=== PATIENT | male | born 1995 | race Caucasian/White ===

== ENCOUNTER 2018-04-12 04:16 | Emergency (ER) | payer OTHER ==
--- NOTE | 2018-04-12 04:41 | EDM.PDOC ---
ED HPI GENERAL MEDICAL PROBLEM - General Chief Complaint: General Stated Complaint: R #3 digit injury Time Seen by Provider: 04/12/18 04:35 Source of Information: Reports: Patient. Denies: Old Records (No [facility] records available) History Limitations: Reports: No Limitations - History of Present Illness INITIAL COMMENTS - FREE TEXT/NARRATIVE: The patient was brought to the emergency room via private automobile by his vehicle safety inspector for evaluation of a Workmen's Compensation injury, which occurred at about 02:45 AM this morning. He accidentally caught his third finger of his right hand in a conveyor chain with no history of foreign body, paresthesias, neurological deficits, or other complaints or injuries. He is right-handed and has not injured this digit in the past. No recent history of abdominal pain, heartburn, nausea, diarrhea, melena, gross hematochezia, or any food intolerance, including fatty foods, etc.. The patient also denies any recent fever, cough, wheezing, dyspnea, etc.. The patient was wearing safety glasses at time of the above accident. Onset: Today, Sudden Onset Date: 04/12/18 Onset Time: 02:45 Duration: Constant Location: Reports: Upper Extremity, Right. Denies: Head, Face, Neck, Chest, Abdomen, Back, Pelvis, Upper Extremity, Left, Radiates to Quality: Reports: Sharp, Throbbing Severity: Moderate Improves with: Reports: Rest Worsens with: Reports: Movement Context: Reports: Trauma (As above) Associated Symptoms: Denies: Confusion, Chest Pain, Cough, Diaphoresis, Fever/ Chills, Headaches, Loss of Appetite, Malaise, Nausea/Vomiting, Seizure, Shortness of Breath, Syncope, Weakness Treatments STEVEDORE HOLD: Reports: Dressing(s) Right Finger-Middle Pain Score (Numeric/FACES): 8 - Related Data Allergies Allergy/AdvReac Type Severity Reaction Status Date / Time No Known Allergies Allergy Verified 04/12/18 04:25 Home Meds: Home Meds Amoxicillin/Potassium Clav [Augmentin 875-125 Tablet] 1 each PO BIDMEALS #20 tablet 04/12/18 [Rx] Past Medical History Cardiovascular History: Reports: Heart Murmur, Hypertension Social & Family History - Tobacco Use Smoking Status *Q: Current Every Day Smoker Tobacco Use Within Last Twelve Months: Cigarettes Years of Tobacco use: 6 Packs/Tins Daily: 1 Packs/Tins Daily Comment: Started smoking at age 16. Maximum use of 2 packs per day. - Living Situation & Occupation Living situation: Reports: with Significant Other (No children) Occupation: Employed ([employer]) ED ROS GENERAL - Review of Systems Review Of Systems: ROS reveals no pertinent complaints other than HPI. ED EXAM, GENERAL - Physical Exam Exam: See Below Exam Limited By: No Limitations General Appearance: Alert, WD/WN, No Apparent Distress Head: Atraumatic, Normocephalic. No: Facial Swelling, Facial Tenderness, Sinus Tenderness Neck: Normal Inspection, Supple, Non-Tender, Full Range of Motion. No: Lymphadenopathy (L), Lymphadenopathy (R), Thyromegaly Respiratory/Chest: No Respiratory Distress, Lungs Clear, Normal Breath Sounds, No Accessory Muscle Use, Chest Non-Tender. No: Pleural Rub, Retractions Cardiovascular: Normal Peripheral Pulses, Regular Rate, Rhythm, No Edema, No Gallop, No JVD, No Murmur, No Rub. No: Gallop/S3, Gallop/S4, Friction Rub Peripheral Pulses: 2+: Radial (L), Radial (R), Dorsalis Pedis (L), Dorsalis Pedis (R) GI/Abdominal: Normal Bowel Sounds, Soft, Non-Tender, No Organomegaly, No Distention, No Abnormal Bruit, No Mass, Pelvis Stable. No: Guarding (Male) Exam: Deferred Rectal (Males) Exam: Deferred Back Exam: Normal Inspection, Full Range of Motion. No: CVA Tenderness (L), CVA Tenderness (R), Muscle Spasm Extremities: Normal Range of Motion, No Pedal Edema, Arm Pain (Moderate to severe palpation pain over laceration site), Other (Macerated dorsal distal surface of digit #3 of the right hand including numbness complete avulsion of the fingernail including the nailbed. No foreign body. Multiple irregular lacerations over the palmar surface in the same area with estimated total length of all lacerations of 5 cm. No evidence of joint involvement, significant skeletal deformity,). No: Joint Swelling, Krissy's Sign, Increased Warmth Neurological: Alert, Oriented, CN II-XII Intact, Normal Cognition, Normal Gait, No Motor/Sensory Deficits Psychiatric: Normal Affect, Normal Mood Skin Exam: Wound/Incision (As above). No: Diaphoretic Lymphatic: No Adenopathy ED GENERAL MEDICAL PROCEDURES - Laceration/Wound Repair Right Digit - 3rd (Middle) Lac/wound length in cm: 5 Appearance: Subcutaneous, Stellate, Irregular, Mildly Contaminated Distal NVT: Neuro & Vascular Intact, No Tendon Injury Anesthetic Type: Local Local Anesthesia - Lidocaine (Xylocaine): 1% Plain Local Anesthetic Volume: Other (8 ml) Skin Prep: Providone-Iodine (Betadine), Other (And povidone-iodine soak) Exploration/Debridement/Repair: Wound Explored, In a Bloodless Field, Explored to Base, No Foreign Material Found, Wound Margins Revised, Multiple Flaps Aligned, Other (#10 blade scalpel used for tissue revision and assistance in permanent nail removal) Closed with: Sutures Suture Size: 4-0 # of Sutures: 10 Suture Type: Nylon, Interrupted, Simple Drain Placement: Yes Sterile Dressing Applied: Nurse Tetanus Status Addressed: Yes Complications: No Progress/Comments: Note that secondary to macerated nailbed this cannot be completely repaired with anticipated secondary intention healing Course - Vital Signs Last Recorded V/S: Last Vital Signs Temp 36.8 C 04/12/18 04:17 Pulse 66 04/12/18 04:17 Resp 16 04/12/18 04:17 BP 136/67 04/12/18 04:17 Pulse Ox 98 04/12/18 04:17 Vital Signs - 24 hr 04/12/18 04:17 Temperature [ 36.8 C Temporal] Pulse, 66 Peripheral [ Left] Respiratory 16 Rate Blood Pressure 136/67 [Left Arm] O2 Sat by Pulse 98 Oximetry - Orders/Labs/Meds Orders: Active Orders 24 hr Category Date Time Status Fingers Third Digit Rt F7 [CR] Stat Exams 04/12/18 04:41 Ordered Durable Medical Equipment for Discharge [DME for Oth 04/12/18 04:42 Ordered Discharge] [COMM] Routine Obtain Past Medical Record [OM.PC] Routine Oth 04/12/18 04:41 Active Labs: None Meds: Medications Discontinued Medications Generic Name Dose Route Start Last Admin Trade Name Freq PRN Reason Stop Dose Admin Lidocaine HCl 5 ml 04/12/18 04:41 04/12/18 05:19 Xylocaine-Mpf 1% INJECT 04/12/18 04:42 5 ml ONETIME ONE Administration Lidocaine HCl 5 ml 04/12/18 05:08 04/12/18 05:19 Xylocaine-Mpf 1% INJECT 04/12/18 05:09 5 ml ONETIME ONE Administration Neomycin/Polymyxin/Bacitracin 1 each 04/12/18 04:42 04/12/18 05:19 Triple Antibiotic Oint TOP 04/12/18 04:43 1 each ONETIME ONE Administration - Radiology Interpretation Free Text/Narrative:: X-rays of digit #3 of the right hand shows evidence of a mildly angulated however nondisplaced distal fracture of the distal phalanx with additional small avulsion chip tuft fracture with no joint involvement, dislocation, foreign body, etc. Departure - Departure Time of Disposition: 06:25 Disposition: Home, Self-Care 01 Clinical Impression: Laceration, Hypertension, Tobacco abuse counseling, Fracture - Discharge Information *PRESCRIPTION DRUG MONITORING PROGRAM REVIEWED*: Not Applicable *COPY OF PRESCRIPTION DRUG MONITORING REPORT IN PATIENT NATHAN: Not Applicable Prescriptions: Amoxicillin/Potassium Clav [Augmentin 875-125 Tablet] 1 each PO BIDMEALS #20 tablet Instructions: Steps to Quit Smoking, [id number], Finger Fracture, Easy-to- Read, Laceration Care, Adult, [id number], Stitches, Nathan, or Adhesive Wound Closure Referrals: PCP,None [Primary Care Provider] - Forms: ED Department Discharge, ED Return to Work/School Form Additional Instructions: 1. Followup with your regular provider in 10-14 days as directed for reevaluation, suture removal, and repeat x-rays. Bring these discharge instructions with you to that visit 2. Tylenol 650 mg by mouth every 4 hours and/or OTC ibuprofen 2-3 tabs by mouth every 6 hours with food as directed./needed. You may stagger these medications for 48-72 hours only, which essentially means that you are receiving a pain medication about every 2 hours. 3. Antibacterial soap wash/soak with subsequent antibacterial dressing such as Neosporin, etc. as directed 2 times per day until the wound or laceration site completely heals. Keep the area clean and dry with activity restrictions as discussed. Never use hydrogen peroxide for wound care. 4. Work excuse- See Form 5. Stop all tobacco use KESHIA as directed/per provided information and consider contacting Quit LIne, etc.. 6. Immediately after this visit verify that your cellular telephone's voicemail has been activated and is empty. Also verify that your home telephone 's answering machine is operating properly and has space to receive messages. Note that it is sometimes necessary for us to be able to contact you at a later date to discuss your medical care. 7. Please remember that we are ALWAYS here for you and want to answer any questions you may have. Feel free to call the hospital any time and we call you back KESHIA. 8. Wear finger splint at all times with exception of wound care and bathing as discussed until otherwise directed by regular provider. - Problem List & Annotations (1) Fracture SNOMED Code(s): 679604338 Code(s): T14.8XXA - OTHER INJURY OF UNSPECIFIED BODY REGION, INITIAL ENCOUNTER Status: Acute Priority: High Current Visit: Yes Onset Date: Annotation/Comment:: Only minimally angulated nondisplaced distal fracture of the distal phalanx of digit #3 of the right hand with additional mild small mildly displaced chip tuft fracture with no evidence of foreign body , dislocation, etc. Note open fracture with laceration repair as below. Augmentin therapy initiated KESHIA. (2) Laceration SNOMED Code(s): 666033153 Code(s): CNA6446 - Status: Acute Priority: High Current Visit: No Onset Date: 04/12/18 Annotation/Comment:: Overall good results with laceration repair as above. Patient is aware that he may permanently lose his nail with macerated finger nailbed, which is unable to be completely repaired with expected long-term healing by secondary intention. Activity restrictions, wound care, etc. discussed. The emergency room nurse did confirm that the patient's last TdAP was given on 04/12/16. Work excuse and Workmen's Compensation forms were completed. (3) Hypertension SNOMED Code(s): 74940711 Code(s): I10 - ESSENTIAL (PRIMARY) HYPERTENSION Status: Chronic Priority : Medium Current Visit: No Annotation/Comment:: History of medical therapy, however not currently. Blood pressures under good control in the emergency room. Continue to observe closely by his regular provider. Qualifiers: Hypertension type: essential hypertension Qualified Code(s): I10 - Essential (primary) hypertension (4) Tobacco abuse counseling SNOMED Code(s): 057230932, 274997821, [id number] Code(s): Z71.6 - TOBACCO ABUSE COUNSELING Status: Chronic Priority: Medium Current Visit: No Annotation/Comment:: Tobacco cessation strongly encouraged information provided at discharge. - Problem List Review Problem List Initiated/Reviewed/Updated: Yes - My Orders Last 24 Hours: My Active Orders 04/12/18 04:41 Fingers Third Digit Rt F7 [CR] Stat Obtain Past Medical Record [OM.PC] Routine 04/12/18 04:42 Durable Medical Equipment for Discharge [DME for Discharge] [COMM] Routine - Assessment/Plan Last 24 Hours: My Active Orders 04/12/18 04:41 Fingers Third Digit Rt F7 [CR] Stat Obtain Past Medical Record [OM.PC] Routine 04/12/18 04:42 Durable Medical Equipment for Discharge [DME for Discharge] [COMM] Routine Assessment:: As above Plan: As above. Extensive precautions were given to the patient and his senior safety management consultant , who are in agreement with the treatment plan. See Patient Instructions for further treatment and plan.
[2018-04-12] MEDS ORDERED: Bacitracin/Neomycin/Polymyxin B Oint 0.9 GM U/D Packet TOP ONE (04:42)
== END 2018-04-12 06:25 | disposition home or self-care (01) ==
LOC: LL.ED 04:16
DX: S62.662B Nondisplaced fracture of distal phalanx of right middle finger, initial encounter for open fracture (principal); I10 Essential (primary) hypertension; Z71.6 Tobacco abuse counseling; F17.210 Nicotine dependence, cigarettes, uncomplicated; W23.0XXA Caught, crushed, jammed, or pinched between moving objects, initial encounter; Y99.0 Civilian activity done for income or pay
CPT/HCPCS: 12002; 73140-F7; 99283-25; J2001